=== PATIENT | female | born 1985 ===

== ENCOUNTER 2023-04-30 11:08 | Emergency (ER) | payer MEDICAID, SELFPAY ==
--- NOTE | 2023-04-30 11:15 | ED_ITS ---
HPI - Nausea/Vomiting/Diarrhea General Chief complaint: Abdominal Pain Stated complaint: ABD PAIN,VOMITING,LEG CRAMPS S/P DRINKING LAST NOC Time Seen by Provider: 04/30/23 13:59 Related Data Allergies Allergy/AdvReac Type Severity Reaction Status Date / Time No Known Allergies Allergy Verified 04/30/23 11:24 [facility] Social History Social History Advance Directives: No Physical Exam Vital Signs: Vital Signs: Last Vital Signs Temp 98.2 F 04/30/23 11:19 Pulse 73 04/30/23 11:19 Resp 18 04/30/23 11:19 BP 102/69 04/30/23 11:19 Pulse Ox 97 04/30/23 11:19 O2 Del Method Room Air 04/30/23 11:19 BMI result Body Mass Index 21.9 Course Course Course Narrative: RME - 37 yo female presents to the ER for evaluation of N/V and abdominal pain after a night of heavy drinking. She states she usually dose not drink alcohol but drank an excessive amount of tequila last night. Reports 10/10 upper abdominal pain as well as burning with urination that started today. Actively vomiting in the waiting room. VSS. Plan: labs, UA, IVF and zofran. hold off on abdominal imaging for now Reevaluation(s) Reevaluation #1: Patient eloped prior to full evaluation and treatment Medical Decision Making Lab Data 04/30/23 11:26 04/30/23 11:26 Labs: Lab Results 04/30/23 04/30/23 04/30/23 Range/Units 11:26 11:26 11:26 WBC 12.6 H (4.8-10.8) X10*3/uL RBC 4.13 L (4.20-5.50) X10*6/uL Hgb 13.1 (12.0-16.0) g/dl Hct 36.7 L (37.0-47.0) % MCV 88.9 (80.0-98.0) fL MCH 31.7 (27.0-33.0) pg MCHC 35.7 H (31.0-35.0) g/dl RDW 12.1 (11.0-16.0) % Plt Count 315 (160-400) X10*3/uL MPV 9.8 (9.4-12.3) fL Immature Gran % (Auto) 0.5 H (0.0-0.4) % Neut % (Auto) 85.7 H (45-73) % Lymph % (Auto) 9.2 L (20-40) % Carlisle % (Auto) 3.8 (2-11) % Eos % (Auto) 0.0 (0-4) % Baso % (Auto) 0.8 (0-2) % Lymph # (Auto) 1.2 (1.2-4.9) X10*3/uL Carl[place] # (Auto) 0.5 (0.1-1.2) X10*3/uL Eos # (Auto) 0.0 (0.0-0.4) X10*3/uL Baso # (Auto) 0.1 (0.0-0.2) X10*3/uL Abs Immat Gran (auto) 0.06 H (0.00-0.03) X10*3/uL Absolute Neuts (auto) 10.8 H (2.0-8.3) x10*3/uL Absolute Nucleated RBC 0.000 (0.0-0.012) X10*3/uL Nucleated RBC % (auto) 0.0 (0.0-0.2) /100WBC Sodium 140 (135-145) mmol/L Potassium 3.5 (3.3-5.1) mmol/L Chloride 107 (96-108) mmol/L Carbon Dioxide 14 L (22-29) mmol/L Anion Gap 23 H (12-20) BUN 12 (9-16) mg/dL Creatinine 0.81 (0.5-1.4) mg/dL Estim Creat Clear Calc 93.3 Estimated GFR > 60 Random Glucose 139 H (60-115) mg/dL Calcium 9.3 (8.4-10.2) mg/dL Magnesium 1.6 (1.6-2.6) mg/dL Total Bilirubin 0.6 (0.0-1.0) mg/dL Direct Bilirubin 0.2 (0.0-0.5) mg/dL AST 23 (5-31) U/L ALT 19 (0-31) U/L Alkaline Phosphatase 60 (39-117) U/L Total Protein 7.8 (6.5-8.0) g/dL Albumin 4.5 (3.5-5.0) g/dL Lipase 23 (8-78) U/L Ethyl Alcohol < 10 mg/dL Discharge Plan Discharge Clinical Impression: Nausea & vomiting Patient Disposition: Elopement Discharge Date/Time: 04/30/23 14:12
[2023-04-30 11:19] VITALS: BP 102/69; BP 108/68; PULSE 73; PULSE 78; RESP 18; TEMP 36.8; O2SAT 97; BMI 21.9
[2023-04-30 11:31] LABS: MANUAL DIFF FLAG NO
[2023-04-30 11:33] LABS: Basophils Absolute Auto 0.1 X10*3/uL (0.0-0.2); Basophils Percent Auto 0.8 % (0-2); Hematocrit 36.7 % (37.0-47.0); Hemoglobin 13.1 g/dl (12.0-16.0); Imm Gran Abs Auto 0.06 X10*3/uL (0.00-0.03); Imm Gran Pct Auto 0.5 % (0.0-0.4); Lymphocytes Absolute Auto 1.2 X10*3/uL (1.2-4.9); Lymphocytes Percent Auto 9.2 % (20-40); Mean Corpuscular HGB Conc 35.7 g/dl (31.0-35.0); Mean Corpuscular Hemoglobin 31.7 pg (27.0-33.0); Mean Corpuscular Volume 88.9 fL (80.0-98.0); Mean Platelet Volume 9.8 fL (9.4-12.3); Monocytes Absolute Auto 0.5 X10*3/uL (0.1-1.2); Monocytes Percent Auto 3.8 % (2-11); Neutrophils Absolute Auto 10.8 x10*3/uL (2.0-8.3); Neutrophils Percent Auto 85.7 % (45-73); Platelet Count 315 X10*3/uL (160-400); Red Blood Count 4.13 X10*6/uL (4.20-5.50); Red Cell Distribution Width 12.1 % (11.0-16.0); White Blood Count 12.6 X10*3/uL (4.8-10.8)
[2023-04-30 11:47] LABS: Ethanol < 10 mg/dL
[2023-04-30 11:56] LABS: Alanine Aminotransferase 19 U/L (0-31); Albumin Level 4.5 g/dL (3.5-5.0); Alkaline Phosphatase 60 U/L (39-117); Anion Gap 23 (12-20); Aspartate Amino Transferase 23 U/L (5-31); Bilirubin Direct 0.2 mg/dL (0.0-0.5); Bilirubin Total 0.6 mg/dL (0.0-1.0); Blood Urea Nitrogen 12 mg/dL (9-16); Calcium 9.3 mg/dL (8.4-10.2); Carbon Dioxide 14 mmol/L (22-29); Chloride 107 mmol/L (96-108); Creatinine Clr Calc Pharmacy 93.3; Estimated Glomerular Filt Rate > 60; Glucose Random 139 mg/dL (60-115); Lipase 23 U/L (8-78); Magnesium 1.6 mg/dL (1.6-2.6); Potassium 3.5 mmol/L (3.3-5.1); Sodium 140 mmol/L (135-145); Total Protein 7.8 g/dL (6.5-8.0)
== END 2023-04-30 14:12 | disposition left against medical advice (07) ==
LOC: HO.ED 14:09
PROVIDERS: Physician Assistant; Emergency Provider Emergency Medicine
DX: R11.2 Nausea with vomiting, unspecified (principal); R10.9 Unspecified abdominal pain
CPT/HCPCS: 36415; 80048; 80076; 80307; 83690; 83735; 85025; 99281; 99283

== ENCOUNTER 2023-05-04 09:38 | Outpatient (REF) | payer MEDICAID, SELFPAY ==
[2023-05-04 10:49] LABS: MANUAL DIFF FLAG NO
[2023-05-04 11:40] LABS: Basophils Absolute Auto 0.1 X10*3/uL (0.0-0.2); Basophils Percent Auto 1.5 % (0-2); Eosinophils Absolute Auto 0.2 X10*3/uL (0.0-0.4); Eosinophils Percent Auto 2.6 % (0-4); Hematocrit 41.9 % (37.0-47.0); Hemoglobin 13.8 g/dl (12.0-16.0); Imm Gran Abs Auto 0.02 X10*3/uL (0.00-0.03); Imm Gran Pct Auto 0.3 % (0.0-0.4); Lymphocytes Absolute Auto 1.6 X10*3/uL (1.2-4.9); Lymphocytes Percent Auto 24.6 % (20-40); Mean Corpuscular HGB Conc 32.9 g/dl (31.0-35.0); Mean Corpuscular Hemoglobin 31.2 pg (27.0-33.0); Mean Corpuscular Volume 94.6 fL (80.0-98.0); Mean Platelet Volume 10.6 fL (9.4-12.3); Monocytes Absolute Auto 0.7 X10*3/uL (0.1-1.2); Monocytes Percent Auto 10.8 % (2-11); Neutrophils Percent Auto 60.2 % (45-73); Platelet Count 299 X10*3/uL (160-400); Red Blood Count 4.43 X10*6/uL (4.20-5.50); Red Cell Distribution Width 12.4 % (11.0-16.0); White Blood Count 6.6 X10*3/uL (4.8-10.8)
[2023-05-05 01:55] LABS: Alanine Aminotransferase 13 U/L (0-31); Albumin Level 4.1 g/dL (3.5-5.0); Alkaline Phosphatase 48 U/L (39-117); Anion Gap 10 (12-20); Aspartate Amino Transferase 14 U/L (5-31); Bilirubin Total 0.6 mg/dL (0.0-1.0); Blood Urea Nitrogen 8 mg/dL (9-16); Calcium 8.9 mg/dL (8.4-10.2); Carbon Dioxide 28 mmol/L (22-29); Chloride 107 mmol/L (96-108); Cholesterol 166 mg/dL; Estimated Glomerular Filt Rate > 60; Glucose Fasting 83 mg/dL (60-99); HDL Cholesterol 50 mg/dL; LDL Cholesterol Calculated 106 mg/dl; Potassium 4.6 mmol/L (3.3-5.1); Sodium 140 mmol/L (135-145); Total Protein 7.2 g/dL (6.5-8.0); Triglycerides 52 mg/dL
== END 2023-05-04 09:39 | disposition home or self-care (01) ==
LOC: HO.LAB 09:38
PROVIDERS: Nurse Practitioner Psychiatric/Mental Health; Visit Provider Emergency Medicine
DX: Z79.899 Other long term (current) drug therapy (principal)
CPT/HCPCS: 36415; 80053; 80061; 85025

== ENCOUNTER 2023-08-26 09:37 | Outpatient (REF) | payer MEDICAID, SELFPAY ==
[2023-08-26 11:18] LABS: MANUAL DIFF FLAG NO
[2023-08-26 11:38] LABS: Basophils Absolute Auto 0.1 X10*3/uL (0.0-0.2); Basophils Percent Auto 1.4 % (0-2); Eosinophils Absolute Auto 0.5 X10*3/uL (0.0-0.4); Eosinophils Percent Auto 6.7 % (0-4); Hematocrit 40.7 % (37.0-47.0); Hemoglobin 13.8 g/dl (12.0-16.0); Imm Gran Abs Auto 0.02 X10*3/uL (0.00-0.03); Imm Gran Pct Auto 0.3 % (0.0-0.4); Mean Corpuscular HGB Conc 33.9 g/dl (31.0-35.0); Mean Corpuscular Hemoglobin 31.4 pg (27.0-33.0); Mean Corpuscular Volume 92.5 fL (80.0-98.0); Mean Platelet Volume 10.5 fL (9.4-12.3); Monocytes Percent Auto 13.2 % (2-11); Neutrophils Absolute Auto 4.1 x10*3/uL (2.0-8.3); Neutrophils Percent Auto 52.4 % (45-73); Platelet Count 307 X10*3/uL (160-400); Red Cell Distribution Width 12.6 % (11.0-16.0); White Blood Count 7.8 X10*3/uL (4.8-10.8)
[2023-08-26 11:53] LABS: Estimated Average Glucose 82 mg/dL; Hemoglobin A1c % 4.5 % (<6.0)
[2023-08-26 12:11] LABS: Alanine Aminotransferase 17 U/L (0-31); Albumin Level 4.2 g/dL (3.5-5.0); Alkaline Phosphatase 66 U/L (39-117); Anion Gap 9 (12-20); Aspartate Amino Transferase 18 U/L (5-31); Bilirubin Total 0.5 mg/dL (0.0-1.0); Blood Urea Nitrogen 8 mg/dL (9-16); Calcium 8.9 mg/dL (8.4-10.2); Carbon Dioxide 26 mmol/L (22-29); Chloride 107 mmol/L (96-108); Cholesterol 191 mg/dL (<200); Estimated Glomerular Filt Rate > 60; Glucose Random 85 mg/dL (60-115); HDL Cholesterol 44 mg/dL (>40); LDL Cholesterol Calculated 125 mg/dL (<100); Potassium 4.1 mmol/L (3.3-5.1); Sodium 138 mmol/L (135-145); Total Protein 7.7 g/dL (6.5-8.0); Triglycerides 112 mg/dL (<150)
[2023-08-26 12:36] LABS: TSH reflex Free T4 0.31 uIU/mL (0.32-4.0)
[2023-08-26 13:16] LABS: CT PCR NOT DETECTED (Not Detect.); NG PCR NOT DETECTED (Not Detect.)
[2023-08-26 13:32] LABS: Free T4 (Free Thyroxine) 0.93 ng/dL (0.71-1.85)
[2023-08-27 03:38] LABS: Syphilis Screen Nonreactive (Nonreactive)
[2023-08-27 04:01] LABS: HBS Num1 > 1000.00 mIU/mL (0-7.99); HBc Num1 0.14 S/CO (0.00-0.79); HBsAGNum1 0.33 S/CO (0.00-0.99); HIV AB/AG Nonreactive (Nonreactive); HIV Num 1 0.13 S/CO (0.00-0.99); Hepatitis B Core Antibody Nonreactive (Nonreactive); Hepatitis B Surface Antigen Negative (Negative); ~HepC Num1 2.58 S/CO (0.00-0.79); ~Hepatitis B Surface Antibody REACTIVE (Nonreactive); ~Hepatitis C Antibody Reactive (Nonreactive)
[2023-08-31 17:18] LABS: HCV Log PCR <1.18 NOT DETECTED Log IU/mL (NOT DETECTED); HepC Viral Load <15 NOT DETECTED IU/mL (NOT DETECTED)
== END 2023-08-26 09:38 | disposition home or self-care (01) ==
LOC: HO.HHCL 09:37
PROVIDERS: Visit Provider Student in an Organized Health Care Education/Training Program
DX: Z00.00 Encounter for general adult medical examination without abnormal findings (principal)
CPT/HCPCS: 0353U; 36415; 80053; 80061; 83036; 84439; 84443; 85025; 86704; 86706; 86780; 86803; 87340; 87389; 87522

== ENCOUNTER 2023-10-12 10:41 | Outpatient (REF) | payer MEDICAID, SELFPAY ==
[2023-10-12 12:41] LABS: TSH reflex Free T4 0.22 uIU/mL (0.32-4.0)
[2023-10-12 14:01] LABS: Free T4 (Free Thyroxine) 0.85 ng/dL (0.71-1.85)
== END 2023-10-12 10:42 | disposition home or self-care (01) ==
LOC: HO.HHCL 10:41
PROVIDERS: Visit Provider Student in an Organized Health Care Education/Training Program
DX: R79.89 Other specified abnormal findings of blood chemistry (principal)
CPT/HCPCS: 36415; 84439; 84443

== ENCOUNTER 2024-06-26 10:37 | Outpatient (REF) | payer MEDICAID, SELFPAY | END 2024-06-26 10:38 | disposition home or self-care (01) | LOC: HO.HHCL 10:37 | PROVIDERS: Visit Provider Student in an Organized Health Care Education/Training Program | DX: Z13.89 Encounter for screening for other disorder (principal) ==

== ENCOUNTER 2025-03-08 10:39 | Outpatient (REF) | payer MEDICAID, SELFPAY ==
--- OUTSIDE RECORDS SUMMARY | 2025-03-08 10:43 | XMS_ITS | Patient Health Record ---
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 Name Role Phone FABIOLA CROFT Unavailable [phone] Allergies No Known Allergies Results Component Value Reference Range Notes State Lab - Syphilis Testing Reviewed date:07/09/2024 01:11:42 PM Interpretation:Negative Performing Lab: Notes/Report: Negative State Lab - HIV Confirmatory /4th Gen Reviewed date:07/09/2024 01:11:34 PM Interpretation:Negative Performing Lab: Notes/Report: Negative State Lab - Hepatitis C anti body Reviewed date:07/09/2024 01:11:51 PM Interpretation:AB pos, RNA neg Performing Lab: Notes/Report: AB pos, RNA neg Ct, Ng, Trich vag by [id number] Reviewed date:02/13/2025 12:59:12 PM Interpretation:Negative Performing Lab:[facility], [address], [address], [place], Phone - [phone], Director - [facility] Notes/Report: Chlamydia by LAURA Negative Negative Gonococcus by LAURA Negative Negative Trich vag by LAURA Negative Negative HCV Antibody RFX to Quant PC [id number] Reviewed date:02/13/2025 09:11:50 AM Interpretation:AB pos, RNA neg Performing Lab:[facility] [address], [address], [place], Phone - [phone], Director - [facility] Notes/Report: HCV Ab Reactive Non Reactive Hepatitis C Quantitation HCV Not Detected Test Information: The quanti tative range of this assay is 15 IU/mL to 100 million IU/mL. Interpretation: Positive HCV antibody screen without the presence of HCV RNA is consistent with a resolved past infection or a false positive HCV antibody. Consider repeat testing after one month. HIV Ab/p24 Ag with Reflex-[id number] Reviewed date:02/11/2025 11:33:49 AM Interpretation:Negative Performing Lab:[facility], [address], [address], [place], Phone - [phone], Director - [facility] Notes/Report: HIV Ab/p24 Ag Screen Non Reactive Non Reactive HIV-1/HIV-2 antibodies and HIV-1 p24 antigen were NOT detected. There is no laboratory evidence of HIV infection. HIV Negative T pallidum Screening Benavides -[id number] Reviewed date:02/11/2025 11:33:57 AM Interpretation:Negative Performing Lab:[facility], [address], [address], [place], Phone - [phone], Director - [facility] Notes/Report: T pallidum Antibodies Non Reactive Non Reactive Hepatitis B Surf Ab Quant-00 [id number] Reviewed date:02/11/2025 11:33:25 AM Interpretation:Immune Performing Lab:[facility], [address], [address], [place], Phone - [phone], Director - [facility] Notes/Report: Hepatitis B Surf Ab Quant 3537.0 Immunity>10 mIU /mL Results confirmed on dilution. Status of Immunity Anti-HBs Level Inconsistent with Immunity 0.0 - 10.0 Consistent with Immunity >10.0 HBsAg Screen-[id number] Reviewed date:02/11/2025 11:33:41 AM Interpretation:Negative Performing Lab:[address], [address], [place], Phone - [phone], Director - [facility] Notes/Report: HBsAg Screen Negative Negative Wet Mount Reviewed date:02/08/2025 01:35:30 PM Interpretation:BV positive Performing Lab: Notes/Report: BV positive Clue Cells pos WBC scant Hyphae neg Trichomonas neg pH 5.5 DOMINIC Prep pos whiff State [facility] - Hepatitis C anti body Reviewed date:11/27/2024 11:36:47 AM Interpretation:AB pos RNA neg Performing Lab: Notes/Report: AB pos RNA neg State Lab - HIV Confirmatory /4th Gen Reviewed date:11/27/2024 11:37:29 AM Interpretation:Negative Performing Lab: Notes/Report: Negative HIV 4th Gen Neg State Lab - Syphilis Testing Reviewed date:11/27/2024 11:37:12 AM Interpretation:Negative Performing Lab: Notes/Report: Negative State Lab - Chlamydia GC Amp Probe, Urine Reviewed date:11/27/2024 11:37:54 AM Interpretation:Negative Performing Lab: Notes/Report: Negative Reason For Referral No Information Medications Medication SIG (Take, Route, Fr equency, Duration) Notes Start Date End Date Status Fluconazole 150 MG 1 tablet Orally One tablet on the first day, then one tablet every 3rd day for 3 days 02/20/2025 Active MetroGel-Vaginal 0.75 % 1 application at bedtime Vaginal Once a day for 5 day(s) 02/08/2025 Active Social History Sex Assigned At : Social History Observation Description Sex Assigned At Female Vital Signs Blood pressure diastolic 64 mm Hg 02/08/2025 Height 5'6 in 02/08/2025 Blood pressure systolic 108 mm Hg 02/08/2025 Weight 125 lbs 02/08/2025 BMI 20.17 kg/m2 02/08/2025 Encounters Encounter Location Date Provider Diagnosis [facility] [address] [place] [phone] 06/26/2024 FABIOLA CROFT [facility] [address] [place] [phone] 11/21/2024 FABIOLA CROFT [address] [phone] 02/08/2025 FABIOLA CROFT Encounter for screen ing for infections with a predominantly sexual mode of transmission Z11.3 ; Vaginitis, Acute N76.0 ; HIV Screening Z11.4 ; Screening for other viral diseases Z11.59 and Encounter for screening for other infectious and parasitic diseases Z11.8 [facility] [address] [place] [phone] 07/02/2024 FABIOLA CROFT [facility] [address] [place] [phone] 11/26/20[address] [phone] 02/19/2025 FABIOLA CROFT Assessments Encounter Date Diagnosis (ICD Code) Assessment Notes Treatment Notes Treatment Clinical Notes Section Notes 02/08/2025 Encounter for screening for infections with a predominantly sexual mode of transmission (ICD-10 - Z11.3) Discussed STI risks, screenings that are available through [facility] and safe sex. Clt aware of lab processing times and how to view results on portal and how positive results will be communicated Need 2 out of 3 Sections from A-C Section A) Problems (only need one from below) Section B) Data (need at least one of the following categories in this section) Category 1: (Choose three of the following): Order Unique tests Section C) Risk (any one of the following) Prescription drug management (this counts for the whole section) 02/08/2025 Vaginitis, Acute (ICD-10 - N76.0) Reviewed BV findings and treatment options. No sexual activity during treatment. Need 2 out of 3 Sections from A-C Section A) Problems (only need one from below) Section B) Data (need at least one of the following categories in this section) Category 1: (Choose three of the following): Order Unique tests Section C) Risk (any one of the following) Prescription drug management (this counts for the whole section) 02/08/2025 HIV Screening (ICD-10 - Z11.4) Need 2 out of 3 Sections from A-C Section A) Problems (only need one from below) Section B) Data (need at least one of the following categories in this section) Category 1: (Choose three of the following): Order Unique tests Section C) Risk (any one of the following) Prescription drug management (this counts for the whole section) 02/08/2025 Screening for other viral diseases (ICD-10 - Z11.59) Need 2 out of 3 Sections from A-C Section A) Problems (only need one from below) Section B) Data (need at least one of the following categories in this section) Category 1: (Choose three of the following): Order Unique tests Section C) Risk (any one of the following) Prescription drug management (this counts for the whole section) 02/08/2025 Encounter for screening for other infectious and parasitic diseases (ICD-10 - Z11.8) Need 2 out of 3 Sections from A-C Section A) Problems (only need one from below) Section B) Data (need at least one of the following categories in this section) Category 1: (Choose three of the following): Order Unique tests Section C) Risk (any one of the following) Prescription drug management (this counts for the whole section) 06/26/2024 Other Client presented to [facility] today for testing. Symptoms: NO active symptoms. Concerned over possible HIV exposure. Discussed window period and determioned it's past. Participant wants current resuklts to reassure herself of negative results. Follow up discussion scheduled for 1 week. 11/21/2024 Other Client presented to [facility] today for STI testing for overall health. She stated that she was told by current partner who is female that she had a male partner and confirmed she had BV. She was educated about the tests that we do here in [facility] and she would need to be tested at the [facility] if she wanted to confirm any BV. She did still want to proceed and have all tests done. All appropriate labs were collected and submitted to the state lab She denied any signs or symptoms She will be contacted once results become available. 02/08/2025 Other Briefly discussed Depo use- suggested if clt's main goal is for wt gain that she address potential underlaying causes to wt loss such as thyroid issues, calorie intake, stress/anxiety etc. Clt in agreement Need 2 out of 3 Sections from A-C Section A) Problems (only need one from below) Section B) Data (need at least one of the following categories in this section) Category 1: (Choose three of the following): Order Unique tests Section C) Risk (any one of the following) Prescription drug management (this counts for the whole section) Plan Of Treatment No Information Insurance Providers Payer Name Payer Address Payer Phone Subscriber Number Group Number Insured Name Patient Relationship to Insured Coverage Start Date Coverage End Date [place] [address] [place] [id number] Lula Salmon Self - patient is the insured Medical (General) History Medical History History ICD Code Thyroid problems
[2025-03-08 13:40] LABS: Hematocrit 34.5 % (37.0-47.0); Hemoglobin 11.7 g/dl (12.0-16.0); Mean Corpuscular HGB Conc 33.9 g/dl (31.0-35.0); Mean Corpuscular Hemoglobin 28.6 pg (27.0-33.0); Mean Corpuscular Volume 84.4 fL (80.0-98.0); Mean Platelet Volume 10.6 fL (9.4-12.3); Platelet Count 370 X10*3/uL (160-400); Red Blood Count 4.09 X10*6/uL (4.20-5.50); Red Cell Distribution Width 14.2 % (11.0-16.0); White Blood Count 7.7 X10*3/uL (4.8-10.8)
[2025-03-08 14:15] LABS: Estimated Average Glucose 94 mg/dL; Hemoglobin A1c % 4.9 % (<6.0)
[2025-03-08 14:35] LABS: Alanine Aminotransferase 13 U/L (0-31); Albumin Level 4.4 g/dL (3.5-5.0); Alkaline Phosphatase 58 U/L (39-117); Anion Gap 12 (12-20); Aspartate Amino Transferase 23 U/L (5-31); Bilirubin Total 0.6 mg/dL (0.0-1.0); Blood Urea Nitrogen 9 mg/dL (9-16); Calcium 9.3 mg/dL (8.4-10.2); Carbon Dioxide 23 mmol/L (22-29); Chloride 109 mmol/L (96-108); Cholesterol 165 mg/dL (<200); Estimated Glomerular Filt Rate > 60; Free T4 (Free Thyroxine) 1.19 ng/dL (0.71-1.85); Glucose Random 83 mg/dL (60-115); HDL Cholesterol 54 mg/dL (>40); LDL Cholesterol Calculated 97 mg/dL (<100); Potassium 3.5 mmol/L (3.3-5.1); Sodium 140 mmol/L (135-145); Thyroid Stimulating Hormone 0.27 uIU/mL (0.32-4.0); Total Protein 7.7 g/dL (6.5-8.0); Triglycerides 71 mg/dL (<150); Vitamin D 25-OH Total 44.7 ng/mL (>30)
[2025-03-08 17:40] LABS: Ferritin 11 ng/mL (10-122)
[2025-03-08 17:54] LABS: Iron 66 mcg/dL (30-160); Percent Iron Saturation 17 % (15-50); Total Iron Binding Capacity 389 mcg/dL (228-428); Unsaturated Iron Binding 323 ug/dL
[2025-03-09 08:53] LABS: Triiodothyronine T3 Free 3.3 pg/mL (2.3-4.2); Triiodothyronine T3 Total 116 ng/dL (76-181)
[2025-03-09 09:19] LABS: Rubella IgG Antibody 5.72 Index
[2025-03-11 07:53] LABS: Syphilis Screen Nonreactive (Nonreactive)
[2025-03-11 08:10] LABS: HIV AB/AG Nonreactive (Nonreactive); HIV Num 1 0.18 S/CO (0.00-0.99); ~HepC Num1 3.12 S/CO (0.00-0.79); ~Hepatitis C Antibody Reactive (Nonreactive)
[2025-03-13 18:19] LABS: HCV Log PCR <1.18 NOT DETECTED Log IU/mL (NOT DETECTED); HepC Viral Load <15 NOT DETECTED IU/mL (NOT DETECTED)
== END 2025-03-08 10:40 | disposition home or self-care (01) ==
LOC: HO.HHCL 10:39
PROVIDERS: Visit Provider Student in an Organized Health Care Education/Training Program
DX: Z00.00 Encounter for general adult medical examination without abnormal findings (principal); D64.9 Anemia, unspecified
CPT/HCPCS: 36415; 80053; 80061; 82306; 82728; 83036; 83540; 84439; 84443; 84480; 84481; 85027; 86735; 86762; 86765; 86780; 86803; 87389; 87522

== ENCOUNTER 2025-03-08 10:49 | Outpatient (REF) | payer MEDICAID, SELFPAY ==
[2025-03-08 14:59] LABS: CT PCR NOT DETECTED (Not Detect.); NG PCR NOT DETECTED (Not Detect.)
== END 2025-03-08 10:50 | disposition home or self-care (01) ==
LOC: HO.HHCL 10:49
PROVIDERS: Visit Provider Student in an Organized Health Care Education/Training Program
DX: Z00.00 Encounter for general adult medical examination without abnormal findings (principal)
CPT/HCPCS: 87491; 87591